=== PATIENT | female | born 1995 | race Caucasian/White ===

== ENCOUNTER 2018-02-19 10:56 | Emergency (ER) | payer BC, OTHER ==
--- NOTE | 2018-02-19 11:10 | PDOC ---
Attending Attestation - Resident Resident Name: AngelallaCharles - ED Attending Attestation I have performed the following: I have examined & evaluated the patient, The case was reviewed & discussed with the resident, I agree w/resident's findings & plan, Exceptions are as noted - HPI HPI: 22 yo F no significant PMH presents with epigastric pain x2 days. She states that the pain comes and goes, currently pain free, but it was severe this morning. No prior similar symptoms. No history of ulcers or stomach problems in the past. No heavy alcohol use, high triglycerides. - Physicial Exam PE: GENERAL: Awake, alert, and fully oriented, in no acute distress HEAD: No signs of trauma EYES: PERRLA, EOMI, sclera anicteric, conjunctiva clear ENT: Auricles normal inspection, hearing grossly normal, nares patent, oropharynx clear without exudates. Moist mucosa NECK: Normal ROM, supple, no lymphadenopathy, JVD, or masses LUNGS: Breath sounds equal, clear to auscultation bilaterally. No wheezes, and no crackles HEART: Regular rate and rhythm, normal S1 and S2, no murmurs, rubs or gallops ABDOMEN: Soft, +upper abd tenderness, worse in epigastric and RUQ. Normoactive bowel sounds. +Guarding, no rebound. No masses EXTREMITIES: Normal range of motion, no edema. No clubbing or cyanosis. No cords, erythema, or tenderness NEUROLOGICAL: Cranial nerves II through XII grossly intact. Normal speech, normal gait SKIN: Warm, Dry, normal turgor, no rashes or lesions noted. - Medical Decision Making Pt with 2 days of upper abd pain. Noted to have epigastric tenderness. Will obtain labs and RUQ sono. 02/19/18 14:23 Sono showed gallstones but no evidence of acute kenji. Stable for DC and outpatient surgical f/u.
[2018-02-19] MEDS ORDERED: FAMOTIDINE 20 MG/50 ML IVPB 20 MG/50 ML MG IVPB ONE ×2 (11:18→11:25)
[2018-02-19] MEDS ORDERED: ONDANSETRON 4 MG/2 ML VIAL IVPUSH ONE (11:18)
[2018-02-19 11:25] VITALS: BP 104/65; PULSE 80; TEMP 98.6; BMI 24.2
[2018-02-19] MEDS ORDERED: ONDANSETRON 4 MG/2 ML VIAL ONE (11:25)
--- NOTE | 2018-02-19 11:43 | PDOC ---
History of Present Illness <Trisha Hussein - Last Filed: 02/19/18 14:19> - General History Source: Patient Exam Limitations: No Limitations - History of Present Illness Initial Comments: 02/19/18 11:39 Patient is a 22F with no significant medical history coming in today complaining of epigastric abdominal pain for the past three days. She describes the pain as an intermittent stabbing pain. Denies burning sensation. Endorses associated nausea. Denies fevers, chills, vomiting. LMP 2.5 weeks ago. Denies prior abominal surgeries. Last bowel movement this morning. No vaginal pain or discharge. <Charles Patel - Last Filed: 02/19/18 16:34> - General Chief Complaint: Pain Stated Complaint: EPIGASTRIC PAIN 3 DAYS Time Seen by Provider: 02/19/18 11:01 Past History <Trisha Hussein - Last Filed: 02/19/18 14:19> - Past Medical History COPD: No Psychiatric Problems: Yes (ANXIETY) - Suicide/Smoking/Psychosocial Hx Smoking History: Never smoked Have you smoked in the past 12 months: No Information on smoking cessation initiated: No Hx Alcohol Use: Yes (SOCIAL) Drug/Substance Use Hx: No Substance Use Type: Alcohol <AmandaCharles - Last Filed: 02/19/18 16:34> - Past Medical History Allergies/Adverse Reactions: Allergies Allergy/AdvReac Type Severity Reaction Status Date / Time No Known Allergies Allergy Unverified 02/19/18 10:57 Home Medications: Ambulatory Orders Escitalopram Oxalate [Lexapro -] 10 mg PO DAILY 02/19/18 Ibuprofen [Motrin -] 600 mg PO TID PRN #21 tablet 02/19/18 Oxycodone HCl/Acetaminophen [Percocet 5-325 mg Tablet] 1 tab PO Q6H PRN #10 tablet MDD 4 tabs 02/19/18 Review of Systems - Review of Systems Comments:: 02/19/18 11:41 GENERAL/CONSTITUTIONAL: No fever or chills. No weakness. HEAD, EYES, EARS, NOSE AND THROAT: No change in vision. No sore throat. CARDIOVASCULAR: No chest pain or shortness of breath RESPIRATORY: No cough, wheezing, or hemoptysis. GASTROINTESTINAL: No nausea, vomiting, diarrhea or constipation. GENITOURINARY: No dysuria, frequency, or change in urination. MUSCULOSKELETAL: No joint or muscle swelling or pain. No neck or back pain. SKIN: No rash NEUROLOGIC: No headache, vertigo, loss of consciousness, or change in strength/ sensation. ENDOCRINE: No increased thirst. No abnormal weight change HEMATOLOGIC/LYMPHATIC: No anemia, easy bleeding, or history of blood clots. ALLERGIC/IMMUNOLOGIC: No hives or skin allergy. <Charles Patel - Last Filed: 02/19/18 16:34> *Physical Exam - Vital Signs Last Vital Signs Temp Pulse Resp BP Pulse Ox 98.6 F 80 16 104/65 99 02/19/18 10:57 02/19/18 10:57 02/19/18 10:57 02/19/18 10:57 02/19/18 10:57 <Trisha Hussein - Last Filed: 02/19/18 14:19> - Vital Signs Last Vital Signs Temp Pulse Resp BP Pulse Ox 98.6 F 80 16 104/65 99 02/19/18 10:57 02/19/18 10:57 02/19/18 10:57 02/19/18 10:57 02/19/18 10:57 - Physical Exam Comments: 02/19/18 11:41 GENERAL: Awake, alert, and fully oriented, in no acute distress HEAD: No signs of trauma, normocephalic, atraumatic EYES: PERRLA, EOMI, sclera anicteric, conjunctiva clear ENT: Auricles normal inspection, hearing grossly normal, nares patent, oropharynx clear without exudates. Moist mucosa NECK: Normal ROM, supple, no lymphadenopathy, JVD, or masses LUNGS: No distress, speaks full sentences, clear to auscultation bilaterally HEART: Regular rate and rhythm, normal S1 and S2, no murmurs, rubs or gallops, peripheral pulses normal and equal bilaterally. ABDOMEN: +ruq and epigastric tenderness. No guarding, no rebound. No masses EXTREMITIES: Normal inspection, Normal range of motion, no edema. No clubbing or cyanosis. NEUROLOGICAL: Cranial nerves II through XII grossly intact. Normal speech, normal gait, no focal sensorimotor deficits SKIN: Warm, Dry, normal turgor, no rashes or lesions noted. <Charles Patel - Last Filed: 02/19/18 16:34> ED Treatment Course - LABORATORY CBC & Chemistry Diagram: 02/19/18 11:30 02/19/18 11:41 - ADDITIONAL ORDERS Additional order review: Laboratory Results 02/19/18 02/19/18 11:41 11:41 Sodium 135 L Potassium 3.9 Chloride 104 Carbon Dioxide 24 Anion Gap 7 L BUN 10 Creatinine 0.7 Creat Clearance w eGFR > 60 Random Glucose 85 Calcium 9.0 Total Bilirubin 0.3 AST 15 ALT 13 Alkaline Phosphatase 51 Total Protein 7.6 Albumin 3.9 Lipase 165 Urine Color Yellow Urine Appearance Clear Urine pH 6.0 Ur Specific [place] 1.020 Urine Protein Negative Urine Glucose (UA) Negative Urine Ketones Negative Urine Blood Trace-lysed H Urine Nitrite Negative Urine Bilirubin Negative Urine Urobilinogen 0.2 Ur Leukocyte Esterase 1+ H Urine RBC 0-3 Urine WBC 3-5 Ur Epithelial Cells 1+ Urine Bacteria 1+ Urine HCG, Qual Negative 02/19/18 11:30 RBC 4.33 MCV 82.5 MCHC 33.3 RDW 13.6 MPV 9.8 Neutrophils % 74.6 Lymphocytes % 17.6 Monocytes % 6.4 Eosinophils % 0.9 Basophils % 0.5 - Medications Given in the ED: ED Medications Discontinued Medications Generic Name Dose Route Start Last Admin Trade Name Freq PRN Reason Stop Dose Admin Famotidine/Sodium Chloride 20 mg in 50 mls @ 100 mls/hr 02/19/18 11:18 11:40 Pepcid 20 Mg Premixed Ivpb - IVPB 02/19/18 11:47 100 mls/hr ONCE ONE Administration Ondansetron HCl 4 mg 02/19/18 11:18 02/19/18 11:40 Zofran Injection IVPUSH 02/19/18 11:19 4 mg ONCE ONE Administration <Trisha Hussein - Last Filed: 02/19/18 14:19> - LABORATORY CBC & Chemistry Diagram: 02/19/18 11:30 02/19/18 11:41 <Charles Patel - Last Filed: 02/19/18 16:34> Medical Decision Making - Medical Decision Making 02/19/18 11:41 Patient is 22F with no significant medical history here today with epigastric and ruq pain. Vital signs stable and normal. Exam shows epigastric and RUQ tenderness, more epigastric than RUQ. Believe patient most likely has gastritis , but will also evaluate liver, gallbladder, and for . Given zofran and pepcid for symptoms. 02/19/18 16:34 US shows cholelithiasis, labs normal. Given outpatient surgical referral and return precautions. Discharged. <Charles Patel - Last Filed: 02/19/18 16:34> *DC/Admit/Observation/Transfer - Discharge Dispostion Decision to Admit order: No <Trisha Hussein - Last Filed: 02/19/18 14:19> <Charles Patel - Last Filed: 02/19/18 16:34> Diagnosis at time of Disposition: Biliary colic - Discharge Dispostion Disposition: HOME Condition at time of disposition: Stable - Prescriptions Prescriptions: Ibuprofen [Motrin -] 600 mg PO TID PRN #21 tablet PRN Reason: Pain Oxycodone HCl/Acetaminophen [Percocet 5-325 mg Tablet] 1 tab PO Q6H PRN #10 tablet MDD 4 tabs PRN Reason: Severe Pain - Referrals Referrals: Toi Rose MD [Staff Physician] - Inocencio Rosa MD [Staff Physician] - Marco Antonio Valle MD [Staff Physician] - - Patient Instructions Printed Discharge Instructions: DI for Biliary Colic
[2018-02-19 11:57] LABS: URINE APPEARANCE Clear; URINE BILIRUBIN Negative (NEGATIVE); URINE COLOR Yellow; URINE GLUCOSE (UA) Negative (NEGATIVE); URINE KETONE Negative (NEGATIVE); URINE NITRITE Negative (NEGATIVE); URINE PROTEIN Negative (NEGATIVE); URINE UROBILINOGEN 0.2 (0.2-1.0)
[2018-02-19 12:18] LABS: BASO % 0.5 % (0-2.0); EOS % 0.9 % (0-4.5); HEMATOCRIT 35.7 % (32.4-45.2); HEMOGLOBIN 11.9 GM/dl (10.7-15.3); LYMPH % 17.6 % (8-40); MCH 27.5 pg (25.7-33.7); MCHC 33.3 g/dl (32.0-36.0); MEAN CELL VOLUME 82.5 fl (80-96); MEAN PLT VOLUME 9.8 fl (7.5-11.1); MONO % 6.4 % (3.8-10.2); NEUT % 74.6 % (42.8-82.8); PLATELET COUNT 297 K/MM3 (134-434); RBC 4.33 M/mm3 (3.60-5.2); RDW 13.6 % (11.6-15.6)
[2018-02-19 12:21] LABS: ALBUMIN 3.9 g/dl (3.5-5.0); ALK PHOS 51 U/L (32-92); ANION GAP 7 (8-16); BILIRUBIN,TOTAL 0.3 mg/dl (0.2-1.0); BLOOD UREA NITROGEN 10 mg/dl (7-18); CHLORIDE 104 mmol/L (98-107); CO2 24 mmol/L (22-28); CREATININE 0.7 mg/dl (0.6-1.3); GLUCOSE,RANDOM 85 mg/dl (74-106); POTASSIUM 3.9 mmol/L (3.5-5.1); SGOT/AST 15 U/L (10-42); SGPT/ALT 13 U/L (10-40); SODIUM 135 mmol/L (136-145); TOT PROT 7.6 g/dl (6.4-8.3)
[2018-02-19 13:04] LABS: HCG,QUALITATIVE URINE NEGATIVE; URINE LEUK ESTERASE 1+ (NEGATIVE)
[2018-02-19 13:06] LABS: URINE RBC 0-3 /hpf (0-3)
[2018-02-19 13:07] LABS: EPI CELLS 1+ /HPF; URINE BACTERIA 1+ /hpf (NEGATIVE)
[2018-02-19 14:02] LABS: LIPASE 165 U/L (73-393)
== END 2018-02-19 14:26 | disposition home or self-care (01) ==
LOC: FER 10:56
PROC: 3E033GC Introduction of Other Therapeutic Substance into Peripheral Vein, Percutaneous Approach (ICD-10-PCS; principal; 2018-02-19)
DX: K80.51 Calculus of bile duct without cholangitis or cholecystitis with obstruction (principal)
CPT/HCPCS: 36415; 76705-TC; 80053; 81003; 81015; 83690; 84703; 85025; 99283-25